=== PATIENT | male | born 2000 | race Two or more races ===

== ENCOUNTER 2024-06-29 21:47 | Emergency (ER) | payer MEDICAID ==
[~2024-06-29] VITALS: Ht 157.5 cm; Wt 46.1 kg
[2024-06-29 22:20] VITALS: BP 158/87; PULSE 101; RESP 18; TEMP 98.6; O2SAT 97
[2024-06-29] MEDS: KETOROLAC TROMETH 60MG/2ML VIAL IM ONE (22:41)
[2024-06-29] MEDS ORDERED: IBUP-1456 PO (22:56)
== END 2024-06-29 23:34 | disposition home or self-care (01) ==
LOC: EEVIPCON 21:47 → ER 21:47
DX: S46.811A Strain of other muscles, fascia and tendons at shoulder and upper arm level, right arm, initial encounter (principal); Z88.0 Allergy status to penicillin; Z79.899 Other long term (current) drug therapy; X58.XXXA Exposure to other specified factors, initial encounter; Y93.89 Activity, other specified; Y92.89 Other specified places as the place of occurrence of the external cause; Y99.8 Other external cause status
CPT/HCPCS: 73030; 96372; 99283; J1885